=== PATIENT | female | born 1985 | race Caucasian/White ===

== ENCOUNTER 2016-10-06 19:43 | Emergency (ER) | payer OTHER | END 2016-10-06 22:32 | disposition home or self-care (01) | LOC: FER 19:43 | DX: J02.0 Streptococcal pharyngitis (principal); F17.210 Nicotine dependence, cigarettes, uncomplicated; Z87.19 Personal history of other diseases of the digestive system | CPT/HCPCS: 87450; 87804; 87899; J0561 ==

== ENCOUNTER 2020-07-15 19:23 | Emergency (ER) | payer OTHER ==
[~2020-07-15 19:23] MED LIST: AMOXICILLIN500 MG PO; ATARAX25 MG PO; FIORICET1 EACH PO; IBUPROFEN PO; PRILOSEC20 MG PO; TYLENOL EXTRA500 MG PO; VITAMIN D50000 UNIT PO; ZOFRAN4 MG PO; ZYRTEC10 MG PO
[2020-07-15 20:57] LABS: BILIRUBIN NEGATIVE (NEGATIVE); BLOOD NEGATIVE Ery/uL (NEGATIVE); CLARITY CLEAR (CLEAR); COLOR YELLOW (YELLOW); GLUCOSE (U) NORMAL (NORMAL); LEUKOCYTES NEGATIVE Leu/uL (NEGATIVE); NITRITE NEGATIVE (NEGATIVE); PROTEIN NEGATIVE (NEGATIVE); UROBILINOGEN 0.2 mg/dL (0.2-1.0)
[2020-07-15] MEDS ORDERED: BACLOFEN 10MG T10 MG PO (21:25)
[2020-07-15] MEDS ORDERED: NAPROXEN500 MG PO (21:25)
== END 2020-07-15 21:40 | disposition home or self-care (01) ==
LOC: FER 19:23
PROVIDERS: Nurse Practitioner Family
DX: M54.5 Low back pain (principal); J30.2 Other seasonal allergic rhinitis; F17.210 Nicotine dependence, cigarettes, uncomplicated; Z79.899 Other long term (current) drug therapy
CPT/HCPCS: 81003; 96372; 99283; J1100; J1885

== ENCOUNTER 2021-02-02 07:58 | Emergency (ER) | payer OTHER ==
[~2021-02-02 07:58] MED LIST changes: +BACLOFEN 10MG T10 MG PO; +NAPROXEN500 MG PO
[2021-02-02 08:57] LABS: BASOPHIL 0.3 % (0-2); EOSINOPHIL 0.2 % (0-5); HCT 36.6 % (37.0-47.0); HGB 12.3 g/dl (12.5-16.0); LYMPHOCYTE 14.2 % (15-48); MCH 30.8 pg (25.0-31.0); MCHC 33.6 g/dL (32.0-36.0); MCV 91.7 fL (78.0-100.0); MONOCYTE 4.8 % (0-12); MPV 10.8 fL (6.0-9.5); NEUTROPHIL 80.2 % (41-80); NRBC 0; PLT 222 K/uL (150-400); RBC 3.99 M/uL (4.20-5.40); RDW 13.2 % (11.5-14.0); WBC 11.2 K/uL (4.0-10.5)
[2021-02-02] MEDS ORDERED: ALLERGY RELIEF5 MG PO (09:10)
[2021-02-02] MEDS ORDERED: AUGMENTIN 875-1 EACH PO (09:10)
== END 2021-02-02 10:28 | disposition home or self-care (01) ==
LOC: FER 07:58
PROVIDERS: Internal Medicine
DX: J02.0 Streptococcal pharyngitis (principal); D64.9 Anemia, unspecified; H66.93 Otitis media, unspecified, bilateral; F17.210 Nicotine dependence, cigarettes, uncomplicated
CPT/HCPCS: 36415; 85025; 87880; J2930

== ENCOUNTER 2021-10-28 20:09 | Emergency (ER) | payer OTHER ==
[~2021-10-28 20:09] MED LIST changes: +ALLERGY RELIEF5 MG PO; +AUGMENTIN 875-1 EACH PO
== END 2021-10-28 23:32 | disposition left against medical advice (07) ==
LOC: FER 20:09
DX: R07.0 Pain in throat (principal); R68.84 Jaw pain; Z53.29 Procedure and treatment not carried out because of patient's decision for other reasons; Z28.310 Unvaccinated for COVID-19; Z88.1 Allergy status to other antibiotic agents
CPT/HCPCS: 99281